=== PATIENT | female | born 1975 | race Caucasian/White ===

== ENCOUNTER 2020-05-23 06:35 | Outpatient (CLI) | payer BC ==
[2020-05-23 13:32] LABS: Hemoglobin 13.3 g/dL (12.0-16.0); Mean Corpuscular HGB CONC 31.2 G/DL (32.0-36.0); Mean Corpuscular Hemoglobin 26.8 PG (27.0-33.0); Mean Corpuscular Volume 85.7 fl (80.0-100.0); Mean Platelet Volume 11.1 fl (7.4-10.4); Platelet Count 363 10x3/uL (130-400); Red Blood Cell (RBC) Count 4.97 10x6/uL (3.90-5.20)
[2020-05-23 13:45] LABS: Anion Gap 16 mmol/L (10-20); BUN (Urea Nitrogen) 10 mg/dL (7.0-18.7); Calc. Creatinine Clearance 0 mL/min (70-130); Calcium 9.5 mg/dL (7.8-10.44); Carbon Dioxide 28 mmol/L (22-29); Chloride 101 mmol/L (98-107); Glucose 225 mg/dL (70-105); Potassium 4.4 mmol/L (3.5-5.1); Sodium 141 mmol/L (136-145)
[2020-05-23 13:52] LABS: PTT 25.5 sec (22.0-33.0)
[2020-05-23 23:54] LABS: SARS-CoV-2 MS2 Positive; SARS-CoV-2 N Gene Negative; SARS-CoV-2 S Gene Negative; SARS-CoV-2 by NAA Not Detected (NotDetected); SARS-CoV-2 orf1ab Negative
== END 2020-05-23 06:36 | disposition home or self-care (01) ==
LOC: LABBT 06:35
PROVIDERS: ATTEND Urology
DX: Z01.818 Encounter for other preprocedural examination (principal); Z20.828 Contact with and (suspected) exposure to other viral communicable diseases; N20.0 Calculus of kidney; E66.9 Obesity, unspecified; R31.29 Other microscopic hematuria; R91.1 Solitary pulmonary nodule
CPT/HCPCS: 80048; 85027; 85610; 85730; 87635; 93005; 93010; U0003

== ENCOUNTER 2020-08-30 11:04 | Outpatient (CLI) | payer BC ==
[2020-08-30 12:33] LABS: BHCG - Serum Negative (NEGATIVE); Pregs Control Background? CLEAR/WHITE (CLR/WHITE); Pregs Control Bar Appear? YES (CONTROL BAR)
[2020-08-30 12:43] LABS: Anion Gap 15 mmol/L (10-20); BUN (Urea Nitrogen) 12 mg/dL (7.0-18.7); Calc. Creatinine Clearance 0 mL/min (70-130); Carbon Dioxide 28 mmol/L (22-29); Chloride 99 mmol/L (98-107); Glucose 207 mg/dL (70-105); Hemoglobin 13.1 g/dL (12.0-15.5); Mean Corpuscular HGB CONC 30.7 g/dL (32.0-36.0); Mean Corpuscular Hemoglobin 26.1 pg (27.0-33.0); Mean Corpuscular Volume 85.1 fl (81.6-98.3); Mean Platelet Volume 10.5 fl (7.4-10.4); Platelet Count 337 10x3/uL (150-450); Potassium 3.6 mmol/L (3.5-5.1); RBC Distribution Width 14.1 % (11.5-14.5); Red Blood Cell (RBC) Count 5.02 10x6/uL (3.90-5.03); Sodium 138 mmol/L (136-145); White Blood Cell (WBC) Count 8.9 10x3/uL (3.5-10.5)
[2020-08-30 12:58] LABS: Prothrombin Time 10.8 sec (9.5-12.1)
== END 2020-08-30 11:05 | disposition home or self-care (01) ==
LOC: LABBT 11:04
PROVIDERS: ATTEND Urology
DX: Z01.818 Encounter for other preprocedural examination (principal)
CPT/HCPCS: 80048; 84703; 85027; 85610; 85730; 93005; 93010

== ENCOUNTER 2020-09-03 07:52 | Outpatient (CLI) | payer BC ==
[2020-09-03 22:15] LABS: SARS-CoV-2 PCR by NAA Not Detected (NotDetected)
== END 2020-09-03 07:53 | disposition home or self-care (01) ==
LOC: LABBT 07:52
PROVIDERS: ATTEND Urology
DX: Z01.818 Encounter for other preprocedural examination (principal); N20.0 Calculus of kidney; R31.29 Other microscopic hematuria; E66.9 Obesity, unspecified; R91.1 Solitary pulmonary nodule
CPT/HCPCS: 87635; U0003; U0005

== ENCOUNTER 2020-09-05 06:10 | Day surgery (SDC) | payer BC ==
[2020-09-04 14:04] VITALS: BMI 39.4
[2020-09-05] MEDS ORDERED: Levofloxacin 500 mg/D5W 100 ml Premix Bag ONE (07:06)
[2020-09-05] MEDS ORDERED: Iothalamate Meglumine 60% 50 ML VIAL FS ONE (08:35)
[2020-09-05] MEDS ORDERED: PROPOFOL 200 MG/20 ML VIAL ONE (08:44)
[2020-09-05] MEDS ORDERED: diphenhydrAMINE 50 MG/ML VIAL ONE (08:44)
[2020-09-05] MEDS ORDERED: Rocuronium Bromide 10 MG/ML (10ML VIAL) ONE (08:44)
[2020-09-05] MEDS ORDERED: Glycopyrrolate 0.2 MG/ML 5 ML SYRINGE ONE (08:44)
[2020-09-05] MEDS ORDERED: Dexamethasone 20 MG/5 ML VIAL ONE (08:44)
[2020-09-05] MEDS ORDERED: Ondansetron PF 4 MG/2 ML Vial ONE (08:44)
[2020-09-05] MEDS ORDERED: Fentanyl 100 MCG/2 ML VIAL ONE (09:20)
[2020-09-05] MEDS ORDERED: SUGAMMADEX SODIUM 200 MG/2 ML VIAL ONE (10:13)
[2020-09-05] MEDS ORDERED: Oxybutynin 5 MG TAB ONE (10:42)
[2020-09-05] MEDS ORDERED: Phenazopyridine HCl 100 MG TAB ONE (10:42)
[2020-09-12 21:08] LABS: CA Oxalate Dihydrate 70 % (.); CA Oxalate Monohydrate 30 % (.); Color Tan (.); Stone Weight 14 mg (.)
== END 2020-09-05 13:00 | disposition home or self-care (01) ==
LOC: SDC 06:10
PROVIDERS: ATTEND Urology
PROC: 0T768DZ Dilation of Right Ureter with Intraluminal Device, Via Natural or Artificial Opening Endoscopic (ICD-10-PCS; principal; 2020-09-05)
PROC: 0TC38ZZ Extirpation of Matter from Right Kidney Pelvis, Via Natural or Artificial Opening Endoscopic (ICD-10-PCS; principal; 2020-09-05)
DX: N20.0 Calculus of kidney (principal); I10 Essential (primary) hypertension; R91.1 Solitary pulmonary nodule; E04.1 Nontoxic single thyroid nodule; E66.01 Morbid (severe) obesity due to excess calories; Z68.39 Body mass index [BMI] 39.0-39.9, adult; Z87.891 Personal history of nicotine dependence; Z79.84 Long term (current) use of oral hypoglycemic drugs; Z79.899 Other long term (current) drug therapy
CPT/HCPCS: 74018; 74420; 82365; 88300; J1100; J1200; J1956; J2405; J2704; J3010; Q9961

== ENCOUNTER 2020-09-14 08:39 | Outpatient (CLI) | payer BC ==
[2020-09-14 11:48] LABS: Hemoglobin 12.4 g/dL (12.0-15.5); Mean Corpuscular HGB CONC 31.2 g/dL (32.0-36.0); Mean Corpuscular Hemoglobin 26.7 pg (27.0-33.0); Mean Corpuscular Volume 85.4 fl (81.6-98.3); Mean Platelet Volume 11.2 fl (7.4-10.4); Platelet Count 361 10x3/uL (150-450); RBC Distribution Width 14.4 % (11.5-14.5); Red Blood Cell (RBC) Count 4.65 10x6/uL (3.90-5.03); White Blood Cell (WBC) Count 8.6 10x3/uL (3.5-10.5)
[2020-09-14 12:05] LABS: INR-International Normal Ratio 0.9; PTT 25.3 sec (22.0-33.0); Prothrombin Time 10.5 sec (9.5-12.1)
[2020-09-14 12:08] LABS: Anion Gap 18 mmol/L (10-20); BUN (Urea Nitrogen) 14 mg/dL (7.0-18.7); Calc. Creatinine Clearance 0 mL/min (70-130); Carbon Dioxide 24 mmol/L (22-29); Chloride 102 mmol/L (98-107); Glucose 135 mg/dL (70-105); Sodium 140 mmol/L (136-145)
[2020-09-14 17:55] LABS: SARS-CoV-2 PCR by NAA Not Detected (NotDetected)
== END 2020-09-14 08:40 | disposition home or self-care (01) ==
LOC: LABBT 08:39
PROVIDERS: ATTEND Urology
DX: Z01.812 Encounter for preprocedural laboratory examination (principal); Z20.822 Contact with and (suspected) exposure to COVID-19; N20.0 Calculus of kidney; E66.9 Obesity, unspecified; R31.29 Other microscopic hematuria; R91.1 Solitary pulmonary nodule; E04.1 Nontoxic single thyroid nodule
CPT/HCPCS: 80048; 85027; 85610; 85730; 87635; U0003; U0005

== ENCOUNTER 2020-09-19 08:04 | Day surgery (SDC) | payer BC ==
[2020-09-18 11:08] VITALS: BMI 39.4
[2020-09-19] MEDS ORDERED: Levofloxacin 500 mg/D5W 100 ml Premix Bag ONE (08:51)
[2020-09-19] MEDS ORDERED: Iothalamate Meglumine 60% 50 ML VIAL FS ONE (10:00)
[2020-09-19] MEDS ORDERED: SUGAMMADEX SODIUM 200 MG/2 ML VIAL ONE (10:09)
[2020-09-19] MEDS ORDERED: Famotidine/PF 20 mg/2ml Vial ONE (10:09)
[2020-09-19] MEDS ORDERED: Fentanyl 100 MCG/2 ML VIAL ONE (10:09)
[2020-09-19] MEDS ORDERED: Meperidine HCl/PF 25 MG/ML VIAL ONE (10:09)
[2020-09-19] MEDS ORDERED: Dexamethasone 20 MG/5 ML VIAL ONE (10:19)
[2020-09-19] MEDS ORDERED: Rocuronium Bromide 10 MG/ML (10ML VIAL) ONE (10:19)
[2020-09-19] MEDS ORDERED: Ondansetron PF 4 MG/2 ML Vial ONE (10:19)
[2020-09-19] MEDS ORDERED: Albuterol Sulfate HFA (OR ONLY) ONE (10:19)
[2020-09-19] MEDS ORDERED: Metoclopramide HCl 10 MG/2 ML VIAL ONE (10:19)
[2020-09-19] MEDS ORDERED: PROPOFOL 200 MG/20 ML VIAL ONE (10:19)
[2020-09-19] MEDS ORDERED: Lidocaine 1% PF 5 ML VIAL ONE (10:19)
[2020-09-19] MEDS ORDERED: Midazolam HCl 5 mg/5 ml Vial ONE (11:43)
[2020-09-19] MEDS ORDERED: Oxybutynin 5 MG TAB ONE (12:09)
[2020-09-19] MEDS ORDERED: Phenazopyridine HCl 100 MG TAB ONE (12:09)
[2020-09-25 20:12] LABS: CA Oxalate Dihydrate 80 % (.); CA Oxalate Monohydrate 20 % (.); Color Brown (.); Stone Weight 254 mg (.)
== END 2020-09-19 14:02 | disposition home or self-care (01) ==
LOC: SDC 08:04
PROVIDERS: ATTEND Urology
PROC: 0TC38ZZ Extirpation of Matter from Right Kidney Pelvis, Via Natural or Artificial Opening Endoscopic (ICD-10-PCS; principal; 2020-09-19)
PROC: 0T768DZ Dilation of Right Ureter with Intraluminal Device, Via Natural or Artificial Opening Endoscopic (ICD-10-PCS; principal; 2020-09-19)
DX: N20.0 Calculus of kidney (principal); R31.29 Other microscopic hematuria; I10 Essential (primary) hypertension; E66.9 Obesity, unspecified; E04.1 Nontoxic single thyroid nodule; Z68.39 Body mass index [BMI] 39.0-39.9, adult; Z79.899 Other long term (current) drug therapy; Z87.891 Personal history of nicotine dependence
CPT/HCPCS: 74018; 76000; 82365; 88300; J1100; J1956; J2175; J2250; J2405; J2704; J2765; J3010; Q9961; S0028

== ENCOUNTER 2020-09-26 10:23 | Outpatient (CLI) | payer BC | END 2020-09-26 10:24 | disposition home or self-care (01) | LOC: RAD 10:23 | PROVIDERS: ATTEND Urology | DX: N20.0 Calculus of kidney (principal) | CPT/HCPCS: 74018 ==

== ENCOUNTER 2020-11-29 09:08 | Outpatient (CLI) | payer BC | END 2020-11-29 09:09 | disposition home or self-care (01) | LOC: PET 09:08 | PROVIDERS: ATTEND Internal Medicine Critical Care Medicine | DX: R91.1 Solitary pulmonary nodule (principal) | CPT/HCPCS: 78815; A9552 ==

== ENCOUNTER 2023-05-04 03:02 | Inpatient (IN) | payer BC ==
[2023-05-04 11:56] VITALS: BMI 37.8
[2023-05-04] MEDS ORDERED: Ondansetron ODT 4 MG TAB PO PRN (12:30)
[2023-05-04] MEDS ORDERED: Senokot S 8.6-50 MG TAB PO PRN (12:30)
[2023-05-04] MEDS ORDERED: Guaifenesin DM 100-10/5 ML UDCUP PO PRN (12:30)
[2023-05-04] MEDS ORDERED: Ondansetron PF 4 MG/2 ML Vial IVP PRN (12:30)
[2023-05-04] MEDS ORDERED: Dextrose 50% Abboject 50 ML SYRINGE SLOW IVP PRN (12:34)
[2023-05-04] MEDS ORDERED: HumaLOG 300 UNITS/3 ML VIAL SC PRN ×2 (12:34)
[2023-05-04] MEDS ORDERED: Dextrose 5% in Water 1,000 ML IV PRN (12:34)
[2023-05-04] MEDS ORDERED: Glucagon 1 MG/ML KIT IM PRN (12:34)
[2023-05-04] MEDS ORDERED: Acetaminophen 500 MG TAB PO SCH (12:45)
[2023-05-04] MEDS: Sodium Chloride 0.9% 1,000 ML IV SCH ×2 (12:57→21:35)
[2023-05-04] MEDS ORDERED: cefTRIAXone\\ROCEPHIN 2 GM in Sodium Chloride 0.9% 100 ML IVPB SCH (14:00)
[2023-05-04] MEDS: Ibuprofen 600 MG TAB PO PRN (16:39)
[2023-05-04] MEDS ORDERED: Empagliflozin 10 MG TAB PO SCH (21:00)
[2023-05-04] MEDS: Acetaminophen 325 MG TAB PO PRN (21:35)
[2023-05-04] MEDS ORDERED: Piperacillin/Tazobactam 3.375 GM in Sodium Chloride 0.9% 100 ML IVPB SCH (22:00)
[2023-05-05] MEDS: Piperacillin/Tazobactam 3.375 GM in Sodium Chloride 0.9% 100 ML IVPB SCH ×3 (01:02→18:19)
[2023-05-05] MEDS: Ibuprofen 600 MG TAB PO PRN (01:02)
[2023-05-05] MEDS: Sodium Chloride 0.9% 1,000 ML IV SCH ×2 (01:03→09:40)
[2023-05-05] MEDS: Levothyroxine Sodium 112 MCG TAB PO SCH (06:05)
[2023-05-05] MEDS: Levothyroxine Sodium 25 MCG TAB PO SCH (06:05)
[2023-05-05] MEDS: Acetaminophen 325 MG TAB PO PRN ×2 (06:05→18:18)
[2023-05-05 06:23] LABS: #Basophils 0.1 thou/uL (0.0-0.2); #Monocytes 1.1 thou/uL (0.11-0.59); #Neutrophils 8.9 thou/uL (1.40-6.50); %Basophils 0.5 % (0.0-1.0); %Eosinophils 0.3 % (0.0-10.0); %Lymphocytes 11.4 % (21.0-51.0); %Monocytes 9.8 % (0.0-10.0); %Neutrophils 77.7 % (42.0-75.0); Hematocrit 35.8 % (36.0-47.0); Hemoglobin 11.1 g/dL (12.0-16.0); Mean Corpuscular Hemoglobin 24.6 pg (27.0-31.0); Mean Corpuscular Volume 79.4 fl (78.0-98.0); Mean Platelet Volume 10.3 fL (7.4-10.4); Platelet Count 295 10x3/uL (130-400); RBC Distribution Width 16.5 % (11.5-14.5); Red Blood Cell (RBC) Count 4.51 mill/uL (4.20-5.40); White Blood Cell (WBC) Count 11.5 10x3/uL (4.8-10.8)
[2023-05-05 06:49] LABS: Anion Gap 11 mmol/L (10-20); BUN (Urea Nitrogen) 6 mg/dL (7.0-18.7); Calc. Creatinine Clearance 173 mL/min (70-130); Calcium 9.1 mg/dL (7.8-10.44); Carbon Dioxide 26 mmol/L (22-29); Chloride 107 mmol/L (98-107); Estimated GFR 109; Glucose 109 mg/dL (70-105); Potassium 3.3 mmol/L (3.5-5.1); Sodium 141 mmol/L (136-145)
[2023-05-05] MEDS: metFORMIN 500 MG TAB PO SCH ×2 (09:39→18:19)
[2023-05-05] MEDS ORDERED: Loratadine 10 MG TAB PO PRN (11:56)
[2023-05-05] MEDS ORDERED: Ketorolac Tromethamine 30 MG/ML VIAL IVP PRN (18:25)
[2023-05-05] MEDS: Amlodipine 5 MG TAB PO SCH (20:06)
[2023-05-05] MEDS: Ketorolac Tromethamine 30 MG/ML VIAL IVP SCH (23:17)
[2023-05-06] MEDS: Piperacillin/Tazobactam 3.375 GM in Sodium Chloride 0.9% 100 ML IVPB SCH ×3 (01:35→18:26)
[2023-05-06] MEDS: Ketorolac Tromethamine 30 MG/ML VIAL IVP SCH ×3 (05:15→18:27)
[2023-05-06] MEDS: Sodium Chloride 0.9% 1,000 ML IV SCH ×3 (05:20→15:53)
[2023-05-06] MEDS: Levothyroxine Sodium 112 MCG TAB PO SCH (05:22)
[2023-05-06] MEDS: Levothyroxine Sodium 25 MCG TAB PO SCH (05:22)
[2023-05-06 06:13] LABS: #Basophils 0.1 thou/uL (0.0-0.2); #Eosinphils 0.1 thou/uL (0.0-0.7); #Neutrophils 6.5 thou/uL (1.40-6.50); %Basophils 0.7 % (0.0-1.0); %Eosinophils 0.5 % (0.0-10.0); %Lymphocytes 19.7 % (21.0-51.0); %Monocytes 10.7 % (0.0-10.0); Hematocrit 36.1 % (36.0-47.0); Hemoglobin 11.1 g/dL (12.0-16.0); Mean Corpuscular HGB CONC 30.7 g/dL (32.0-36.0); Mean Corpuscular Hemoglobin 24.6 pg (27.0-31.0); Mean Corpuscular Volume 79.9 fl (78.0-98.0); Mean Platelet Volume 10.1 fL (7.4-10.4); Platelet Count 286 10x3/uL (130-400); RBC Distribution Width 16.6 % (11.5-14.5); Red Blood Cell (RBC) Count 4.52 mill/uL (4.20-5.40); White Blood Cell (WBC) Count 9.5 10x3/uL (4.8-10.8)
[2023-05-06 06:35] LABS: Anion Gap 13 mmol/L (10-20); BUN (Urea Nitrogen) 9 mg/dL (7.0-18.7); Calc. Creatinine Clearance 195 mL/min (70-130); Calcium 8.9 mg/dL (7.8-10.44); Carbon Dioxide 25 mmol/L (22-29); Chloride 104 mmol/L (98-107); Estimated GFR 112; Glucose 93 mg/dL (70-105); Potassium 3.2 mmol/L (3.5-5.1); Sodium 139 mmol/L (136-145)
[2023-05-06] MEDS ORDERED: Iopamidol-370 76% 500 ML MDV (1 ML CHARGE) ONE (08:54)
[2023-05-06] MEDS: Valsartan 80 MG TAB PO SCH (09:25)
[2023-05-06] MEDS: Potassium Chloride 20 MEQ TAB PO SCH (09:26)
[2023-05-06] MEDS: metFORMIN 500 MG TAB PO SCH ×2 (09:26→17:23)
[2023-05-06] MEDS: Acetaminophen 325 MG TAB PO PRN (11:39)
[2023-05-06] MEDS: Amlodipine 5 MG TAB PO SCH (20:09)
[2023-05-07] MEDS: Ketorolac Tromethamine 30 MG/ML VIAL IVP SCH ×5 (01:33→23:25)
[2023-05-07] MEDS: Piperacillin/Tazobactam 3.375 GM in Sodium Chloride 0.9% 100 ML IVPB SCH ×3 (01:34→18:07)
[2023-05-07] MEDS: Sodium Chloride 0.9% 1,000 ML IV SCH ×3 (01:35→18:08)
[2023-05-07 05:37] LABS: #Basophils 0.1 thou/uL (0.0-0.2); #Eosinphils 0.1 thou/uL (0.0-0.7); #Monocytes 0.8 thou/uL (0.11-0.59); #Neutrophils 4.9 thou/uL (1.40-6.50); %Basophils 0.8 % (0.0-1.0); %Eosinophils 1.8 % (0.0-10.0); %Lymphocytes 24.2 % (21.0-51.0); %Monocytes 9.8 % (0.0-10.0); Hematocrit 33.2 % (36.0-47.0); Hemoglobin 10.1 g/dL (12.0-16.0); Mean Corpuscular HGB CONC 30.4 g/dL (32.0-36.0); Mean Corpuscular Hemoglobin 24.2 pg (27.0-31.0); Mean Corpuscular Volume 79.6 fl (78.0-98.0); Mean Platelet Volume 10.1 fL (7.4-10.4); Platelet Count 342 10x3/uL (130-400); RBC Distribution Width 16.6 % (11.5-14.5); Red Blood Cell (RBC) Count 4.17 mill/uL (4.20-5.40); White Blood Cell (WBC) Count 7.8 10x3/uL (4.8-10.8)
[2023-05-07 06:01] LABS: Anion Gap 13 mmol/L (10-20); BUN (Urea Nitrogen) 11 mg/dL (7.0-18.7); Calc. Creatinine Clearance 182 mL/min (70-130); Calcium 8.8 mg/dL (7.8-10.44); Carbon Dioxide 24 mmol/L (22-29); Chloride 106 mmol/L (98-107); Estimated GFR 110; Glucose 111 mg/dL (70-105); Potassium 3.3 mmol/L (3.5-5.1); Sodium 140 mmol/L (136-145)
[2023-05-07] MEDS: Levothyroxine Sodium 112 MCG TAB PO SCH (06:09)
[2023-05-07] MEDS: Levothyroxine Sodium 25 MCG TAB PO SCH (06:09)
[2023-05-07] MEDS: metFORMIN 500 MG TAB PO SCH ×2 (09:09→18:07)
[2023-05-07] MEDS: Potassium Chloride 20 MEQ TAB PO SCH (09:09)
[2023-05-07] MEDS: Valsartan 80 MG TAB PO SCH (09:09)
[2023-05-07] MEDS ORDERED: Potassium Chloride 20 MEQ TAB PO SCH (17:45)
[2023-05-07] MEDS: Amlodipine 5 MG TAB PO SCH (19:43)
[2023-05-08] MEDS: Acetaminophen 325 MG TAB PO PRN (01:19)
[2023-05-08] MEDS: Piperacillin/Tazobactam 3.375 GM in Sodium Chloride 0.9% 100 ML IVPB SCH ×3 (01:19→17:11)
[2023-05-08] MEDS: Ketorolac Tromethamine 30 MG/ML VIAL IVP SCH ×4 (05:15→23:27)
[2023-05-08] MEDS: Levothyroxine Sodium 112 MCG TAB PO SCH (05:15)
[2023-05-08] MEDS: Levothyroxine Sodium 25 MCG TAB PO SCH (05:15)
[2023-05-08 05:49] LABS: Anion Gap 12 mmol/L (10-20); BUN (Urea Nitrogen) 9 mg/dL (7.0-18.7); Calc. Creatinine Clearance 195 mL/min (70-130); Calcium 9.2 mg/dL (7.8-10.44); Carbon Dioxide 25 mmol/L (22-29); Chloride 106 mmol/L (98-107); Estimated GFR 112; Glucose 98 mg/dL (70-105); Potassium 3.8 mmol/L (3.5-5.1); Sodium 139 mmol/L (136-145)
[2023-05-08] MEDS: Valsartan 80 MG TAB PO SCH (08:40)
[2023-05-08] MEDS: metFORMIN 500 MG TAB PO SCH ×2 (08:40→17:10)
[2023-05-08] MEDS: Potassium Chloride 20 MEQ TAB PO SCH (08:40)
[2023-05-08] MEDS: Sodium Chloride 0.9% 1,000 ML IV SCH (16:24)
[2023-05-08] MEDS: Amlodipine 5 MG TAB PO SCH (19:53)
[2023-05-09] MEDS: Piperacillin/Tazobactam 3.375 GM in Sodium Chloride 0.9% 100 ML IVPB SCH ×2 (02:47→09:16)
[2023-05-09] MEDS: Levothyroxine Sodium 112 MCG TAB PO SCH (05:38)
[2023-05-09] MEDS: Levothyroxine Sodium 25 MCG TAB PO SCH (05:38)
[2023-05-09] MEDS: Ketorolac Tromethamine 30 MG/ML VIAL IVP SCH (05:38)
[2023-05-09 08:33] VITALS: BP 148/85; TEMP 97.9
[2023-05-09] MEDS: metFORMIN 500 MG TAB PO SCH (09:16)
[2023-05-09] MEDS: Potassium Chloride 20 MEQ TAB PO SCH (09:16)
[2023-05-09] MEDS: Valsartan 80 MG TAB PO SCH (09:16)
[2023-05-09] MEDS: Sodium Chloride 0.9% 1,000 ML IV SCH (10:22)
== END 2023-05-09 11:45 | disposition home or self-care (01) | DRG 872 ==
LOC: SJJU 11:10 → OBSVTOIN 12:30
PROVIDERS: ADMIT Student in an Organized Health Care Education/Training Program; ATTEND Family Medicine
DX: A41.51 Sepsis due to Escherichia coli [E. coli] (principal); N10 Acute pyelonephritis; E11.9 Type 2 diabetes mellitus without complications; I10 Essential (primary) hypertension; E89.0 Postprocedural hypothyroidism; N20.0 Calculus of kidney; E87.6 Hypokalemia; N21.0 Calculus in bladder; Z79.84 Long term (current) use of oral hypoglycemic drugs; Z87.442 Personal history of urinary calculi; Z79.899 Other long term (current) drug therapy; Z90.49 Acquired absence of other specified parts of digestive tract; Z90.710 Acquired absence of both cervix and uterus
CPT/HCPCS: 36415; 36416; 74178; 80048; 85025; 87086; J0696; J1650; J1815; J1885; J2405; J2543; J3490; J7050; Q0162; Q9967